=== PATIENT | female | born 1990 | race American Indian/Alaskan Native ===

== ENCOUNTER 2020-05-28 20:23 | Emergency (ER) | payer SELFPAY ==
[2020-05-28] MEDS ORDERED: SODIUM CHLORIDE 0.9% 1000 ML 1,000 ML IV ONE (21:14)
--- NOTE | 2020-05-28 21:17 | Event Note ---
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 Further treatment and workup at subsequent clinical providers discretion. Patient/guardian urged not to elope from the ED as their condition may be serious if not clinically assessed and managed. Initial orders include: Labs Fluids X-ray
[2020-05-28 21:40] LABS: Hematocrit 40.4 % (30.3-42.9); Mean Corpuscular HGB Conc 35 % (30-34); Mean Corpuscular Volume 96 fl (79-97); Platelet Count 212 K/mm3 (140-440); Red Blood Count 4.22 M/mm3 (3.65-5.03); Red Cell Distribution Width 12.5 % (13.2-15.2)
[2020-05-28 22:02] LABS: Alanine Aminotransferase 16 units/L (7-56); Albumin 4.2 g/dL (3.9-5); BUN/Creatinine Ratio 10; Blood Urea Nitrogen 8 mg/dL (7-17); Calcium 8.8 mg/dL (8.4-10.2); Hemolysis Index 15
--- NOTE | 2020-05-28 22:26 | XRay Report ---
RIGHT FINGER(S) 3 VIEW(S) INDICATION / CLINICAL INFORMATION: recent partial amputation COMPARISON: None available. FINDINGS: BONES / JOINT(S): Bandage overlies the distal forefinger. No fracture or dislocation is visualized. N o significant arthritis. SOFT TISSUES: Soft tissue injury at the distal forefinger with moderate associated edema. Few punctat e foci of increased density overlie the distal forefinger on the lateral view. These appear to be ext ernal on oblique view. ADDITIONAL FINDINGS: None. Signer Name: Antonio Morris MD Signed: 05/28/2020 10:21 PM Workstation Name: [id number]
--- NOTE | 2020-05-28 23:41 | Emergency Department Report ---
ED General Adult HPI - General Chief complaint: Weakness Stated complaint: WEAKNESS DUE TO ANTIBIOTICS Time Seen by Provider: 05/28/20 21:13 Source: patient, EMS Mode of arrival: Ambulatory Limitations: No Limitations - Related Data Previous Rx's Medication Instructions Recorded Last Taken Type Naproxen [Naprosyn] 500 mg PO BID #20 tablet 07/06/18 Unknown Rx Allergies Allergy/AdvReac Type Severity Reaction Status Date / Time No Known Allergies Allergy Verified 07/06/18 08:07 ED Review of Systems ROS: Stated complaint: WEAKNESS DUE TO ANTIBIOTICS Other details as noted in HPI ED Past Medical Hx - Past Medical History Previous Medical History?: Yes Hx Hypertension: Yes - Social History Smoking Status: Never Smoker - Medications Home Medications: Home Medications Medication Instructions Recorded Confirmed Last Taken Type Naproxen [Naprosyn] 500 mg PO BID #20 tablet 07/06/18 Unknown Rx ED Physical Exam - General Limitations: No Limitations ED Course Vital Signs 05/28/20 21:09 Temperature 99.1 F Pulse Rate 125 H Respiratory 18 Rate Blood Pressure 136/95 O2 Sat by Pulse 99 Oximetry ED Medical Decision Making - Lab Data Result diagrams: 05/28/20 21:28 05/28/20 21:28 Vital Signs 05/28/20 21:09 Temperature 99.1 F Pulse Rate 125 H Respiratory 18 Rate Blood Pressure 136/95 O2 Sat by Pulse 99 Oximetry Lab Results 05/28/20 05/28/20 05/28/20 Range/Units 21:28 21:28 21:28 WBC 2.1 L (4.5-11.0) K/mm3 RBC 4.22 (3.65-5.03) M/mm3 Hgb 14.0 (10.1-14.3) gm/dl Hct 40.4 (30.3-42.9) % MCV 96 (79-97) fl MCH 33 H (28-32) pg MCHC 35 H (30-34) % RDW 12.5 L (13.2-15.2) % Plt Count 212 (140-440) K/mm3 Sodium 133 L (137-145) mmol/L Potassium 3.5 L (3.6-5.0) mmol/L Chloride 99.6 (98-107) mmol/L Carbon Dioxide 21 L (22-30) mmol/L Anion Gap 16 mmol/L BUN 8 (7-17) mg/dL Creatinine 0.8 (0.6-1.2) mg/dL Estimated GFR > 60 ml/min BUN/Creatinine Ratio 10 % Glucose 113 H (65-100) mg/dL Calcium 8.8 (8.4-10.2) mg/dL Total Bilirubin < 0.20 (0.1-1.2) mg/dL AST 22 (5-40) units/L ALT 16 (7-56) units/L Alkaline Phosphatase 56 (35-129) units/L Total Protein 7.4 (6.3-8.2) g/dL Albumin 4.2 (3.9-5) g/dL Albumin/Globulin Ratio 1.3 % HCG, Qual Negative (Negative) Critical care attestation.: If time is entered above; I have spent that time in minutes in the direct care of this critically ill patient, excluding procedure time. ED Disposition Condition: Stable Referrals: PRIMARY CARE, [Primary Care Provider] - 3-5 Days
--- NOTE | 2020-05-28 23:55 | Emergency Department Report ---
ED General Adult HPI - General Chief complaint: Weakness Stated complaint: WEAKNESS DUE TO ANTIBIOTICS Time Seen by Provider: 05/28/20 21:13 Source: patient, EMS Mode of arrival: Ambulatory Limitations: No Limitations - History of Present Illness Initial comments: 30-year-old female, no past medical history, presents to ED with generalized weakness x4 days. Patient reports nausea, fever, chills, body aches, loss of appetite, generalized weakness. Patient believes symptoms are secondary to taking Bactrim, medication that she has never had previously. Patient started Bactrim DS, 2 tabs twice daily, 5 days ago following visit to [facility] for partial amputation to the right index finger. Patient reports she has not taken any of the Bactrim today. She has 3 days left in the course. Patient denies any oral or vaginal ulcers. Also reports mild left-sided nosebleed, currently resolved. Patient also reports rash consisting of 3 red spots on her chest. States temp was 100 degrees when she had a fever. Patient denies any cough, shortness of breath. Patient denies any known contact with anyone who has tested positive for COVID-19. Patient has follow-up appointment with hand surgeon in 2 days 05/30/20. -: days(s) (4) Quality: aching Consistency: constant Improves with: none Worsens with: none Associated Symptoms: fever/chills, loss of appetite, malaise, nausea/vomiting. denies: cough, shortness of breath - Related Data Previous Rx's Medication Instructions Recorded Last Taken Type Naproxen [Naprosyn] 500 mg PO BID #20 tablet 07/06/18 Unknown Rx Allergies Allergy/AdvReac Type Severity Reaction Status Date / Time No Known Allergies Allergy Verified 07/06/18 08:07 ED Review of Systems ROS: Stated complaint: WEAKNESS DUE TO ANTIBIOTICS Other details as noted in HPI Comment: All other systems reviewed and negative Constitutional: chills, fever ENT: epistaxis Respiratory: denies: cough, shortness of breath Gastrointestinal: nausea. denies: vomiting Musculoskeletal: myalgia ED Past Medical Hx - Past Medical History Previous Medical History?: Yes Hx Hypertension: Yes - Social History Smoking Status: Never Smoker - Medications Home Medications: Home Medications Medication Instructions Recorded Confirmed Last Taken Type Naproxen [Naprosyn] 500 mg PO BID #20 tablet 07/06/18 Unknown Rx ED Physical Exam - General Limitations: No Limitations General appearance: alert, in no apparent distress - Head Head exam: Present: atraumatic, normocephalic - Eye Eye exam: Present: normal appearance, EOMI - ENT ENT exam: Present: normal orophraynx, mucous membranes moist, other (No active nosebleed, no mucosal lesions present in mouth) - Neck Neck exam: Present: normal inspection - Respiratory Respiratory exam: Present: normal lung sounds bilaterally. Absent: respiratory distress - Cardiovascular Cardiovascular Exam: Present: normal rhythm, tachycardia - GI/Abdominal GI/Abdominal exam: Present: soft. Absent: distended, tenderness - Extremities Exam Extremities exam: Present: other (Right index finger wrapped in bandages) - Neurological Exam Neurological exam: Present: alert, oriented X3 - Psychiatric Psychiatric exam: Present: normal affect, normal mood - Skin Skin exam: Present: warm, dry, intact, normal color, rash (3 small erythematous macules present on anterior chest wall; no rash anywhere else) ED Course Vital Signs 05/28/20 05/28/20 05/28/20 21:09 23:46 23:51 Temperature 99.1 F 98.5 F Pulse Rate 125 H 107 H Respiratory 18 20 20 Rate Blood Pressure 136/95 Blood Pressure 147/109 [Left] O2 Sat by Pulse 99 100 Oximetry 05/29/20 05/29/20 05/29/20 00:00 00:16 00:30 Temperature Pulse Rate Respiratory Rate Blood Pressure 147/109 130/91 130/91 Blood Pressure [Left] O2 Sat by Pulse 100 99 99 Oximetry 05/29/20 05/29/20 05/29/20 00:45 01:00 01:16 Temperature Pulse Rate Respiratory Rate Blood Pressure 129/96 129/96 132/88 Blood Pressure [Left] O2 Sat by Pulse 98 98 99 Oximetry 05/29/20 05/29/20 01:30 01:36 Temperature Pulse Rate 90 Respiratory Rate Blood Pressure 132/88 Blood Pressure [Left] O2 Sat by Pulse 99 Oximetry ED Medical Decision Making - Lab Data Result diagrams: 05/28/20 21:28 05/28/20 21:28 - Radiology Data Radiology results: report reviewed, image reviewed - Medical Decision Making 30-year-old female, no past medical history, presents to ED with generalized weakness x4 days. Patient reports nausea, fever, chills, body aches, loss of appetite, generalized weakness. Symptom onset 1 day after starting Bactrim. Patient has no mucosal lesions or skin sloughing. 3 bumps on her chest which she states she noticed today, however no significant rash is present. On initial presentation, patient tachycardic, with heart rate of 125. Patient is afebrile. She has been given 1 L bolus of fluids and morphine, as patient was complaining of pain to her right index finger. Tachycardia has resolved, vital signs are stable. I do not believe that this is a clear case of Lezama-Thom syndrome at this time. However, have given patient return precautions, including worsening rash, development of painful oral or vaginal lesions. Since we are in the pandemic, patient's symptoms could also be related secondary to a COVID-19 infection. Patient is not in any respiratory distress and she is not hypoxic, however she has been urged to obtain outpatient COVID-19 testing. Also, patient reported that she stopped taking her Bactrim today. I told patient to completely discontinue the Bactrim. Patient has been appointment with the hand doctor in 2 days on 05/30/20. Patient denies being sexually active recently, however she is still urged to obtain HIV testing, as her symptoms could also be secondary to new HIV infection. - Differential Diagnosis Lezama-Thom syndrome, HIV, COVID-19, medication side effect Critical care attestation.: If time is entered above; I have spent that time in minutes in the direct care of this critically ill patient, excluding procedure time. ED Disposition Clinical Impression: Generalized weakness, Hypokalemia Disposition: -01 TO HOME OR SELFCARE Is pt being admited?: No Condition: Stable Instructions: Hypokalemia, Weakness, [id number], Lezama-Thom Syndrome, COVID-19 Additional Instructions: 1. Stop taking your Bactrim. 2. Return to the emergency room if you develop any worsening rash, peeling of your skin, or painful ulcers in your mouth or genital area. 3. Obtain outpatient COVID-19 testing. Quarantine as necessary. Referrals: [facility] [Outside] - [facility] [Provider Group] - [facility] [Outside] - [facility] Time of Disposition: 01:52
[2020-05-29 00:17] LABS: Band Neutrophils # (Manual) 0.1 K/mm3; Ovalocytes Rare; Tear Drop Cells Rare; Total Cells Counted 100
[2020-05-29 00:18] LABS: Platelet Estimate Consistent w Auto
[2020-05-29] MEDS ORDERED: POTASSIUM CHLORIDE ER 20 MEQ TAB PO ONE (00:29)
[2020-05-29] MEDS ORDERED: MORPHINE 4 MG/1 ML INJ IV ONE (00:50)
[2020-05-29 01:07] LABS: Bacteria,Urine 1+ /HPF (Negative); Bilirubin,Urine NEG (Negative); Blood,Urine NEG (Negative); Color,Urine Yellow (Yellow); Hyaline Casts,Urine 3 /LPF; Mucus,Urine 1+ /HPF
[2020-05-29 01:37] VITALS: BP 132/88
== END 2020-05-29 02:05 | disposition home or self-care (01) ==
LOC: ED 20:23
DX: E87.6 Hypokalemia (principal); R53.1 Weakness; I10 Essential (primary) hypertension; Z79.899 Other long term (current) drug therapy
CPT/HCPCS: 36415; 73140; 80053; 81001; 82550; 83735; 84703; 85007; 85025; 96361; 96374; 99284; J2270; J7030